=== PATIENT | male | born 1995 | race Caucasian/White ===

== ENCOUNTER 2018-01-14 21:37 | Emergency (ER) | payer BC ==
--- NOTE | 2018-01-14 22:12 | Emergency Department Record ---
History of Present Illness - General Chief Complaint: Ankle/Foot Injury Stated Complaint: LEFT ANKLE INJURY Time Seen by Provider: 01/14/18 22:08 Source: Patient Mode of Arrival: Ambulatory Limitations: No limitations - History of Present Illness Initial Comments: 22 yo male presents with left lateral ankle pain. He was playing softball, stepped in soggy mud, stepped and felt a lateral left ankle pop sensation. No achilles pain. No foot pain. MD Complaint: Ankle injury -: Hour(s) Injury: Ankle: Left Type of Injury: Eversion Place: Other Severity: Moderate Improves With: Immobilization Worsens With: Movement, Palpation Context: Other Associated Symptoms: Snap/pop sensation - Related Data Home Medications Medication Instructions Recorded Confirmed Last Taken No Home Med [NO HOME MEDS] 01/14/18 01/14/18 Unknown Allergies Allergy/AdvReac Type Severity Reaction Status Date / Time pseudoephedrine Allergy HIVES Verified 01/14/18 22:07 [From Sudafed] sulfamethoxazole Allergy PT UNSURE Verified 06/19/14 23:15 [From Bactrim] OF REACTION trimethoprim [From Bactrim] Allergy PT UNSURE Verified 06/19/14 23:15 OF REACTION Review of Systems Constitutional: Denies: Chills, Fever, Weakness Eyes: Denies: Eye discharge ENT: Denies: Congestion, Throat pain Respiratory: Denies: Cough Cardiovascular: Denies: Syncope Endocrine: Denies: Fatigue Gastrointestinal: Denies: Abdominal pain, Diarrhea, Nausea, Vomiting Genitourinary: Denies: Dysuria, Frequency Musculoskeletal: Reports: As per HPI, Arthralgia Skin: Denies: Bruising, Change in color, Rash Neurological: Denies: Headache, Numbness, Weakness Psychiatric: Denies: Anxiety Hematological/Lymphatic: Denies: Easy bleeding, Easy bruising Past Medical History - SOCIAL HISTORY Smoking Status: Never smoker - RESPIRATORY Hx Respiratory Disorders: No - CARDIOVASCULAR Hx Cardio Disorders: No - NEURO Hx Neuro Disorders: No - GI Hx GI Disorders: No - Hx Genitourinary Disorders: No - ENDOCRINE Hx Endocrine Disorders: No - MUSCULOSKELETAL Hx Musculoskeletal Disorders: No - PSYCH Hx Psych Problems: No - HEMATOLOGY/ONCOLOGY Hx Hematology/Oncology Disorders: No Physical Exam - General General Appearance: Alert, Oriented x3, Cooperative, No acute distress Limitations: No limitations - Head Head exam: Atraumatic, Normal inspection - Eye Eye exam: Normal appearance. negative: Conjunctival injection, Scleral icterus - ENT ENT exam: Normal exam Ear exam: Normal external inspection Nasal Exam: Normal inspection Mouth exam: Normal external inspection - Neck Neck exam: Normal inspection - Cardiovascular Peripheral Pulses: 2+: Dorsalis Pedis (L) - Rectal Rectal exam: Deferred - exam: Deferred - Extremities Extremities exam: Joint swelling, Tenderness. negative: Normal inspection Image of Feet: 1 - lateral ankle tenderness and swelling, intact skin, achilles is intact, the 5th MT is non tender, and the remainder of the foot is non tender - Neurological Neurological exam: Alert, Oriented X3 - Psychiatric Psychiatric exam: Normal affect, Normal mood - Skin Skin exam: Dry, Intact, Normal color, Warm Course - Reevaluation(s) Reevaluation #1: 01/14/18 22:52 The XR was reviewed The distal tip of the medial and lateral malleoli both have calcifications These could represent both old and new injuries. He states he has injured the ankle in the past several times He has a [employer] at home with crutches. He will apply both and be non weight bearing until follow up Disposition Disposition: Discharge Clinical Impression: High ankle sprain of left lower extremity Qualifiers: Encounter type: initial encounter Qualified Code(s): S93.432A - Sprain of tibiofibular ligament of left ankle, initial encounter Disposition: Home, Self-Care Condition: (1) Good Instructions: Ankle Sprain (ED) Additional Instructions: Use your [employer] boot and crutches until pain free Call you doctor for a recheck You have been referred to Dr Sahu for orthopedic referral Forms: Patient Portal Access Time of Disposition: 22:55 Quality - Quality Measures Quality Measures: N/A - Blood Pressure Screening Does Patient Have Any of the Following: No Blood Pressure Classification: Hypertensive Reading Systolic Measurement: 144 Diastolic Measurement: 96 Screening for High Blood Pressure: < Pre-Hypertensive BP, F/U Documented > [ [id number]] Pre-Hypertensive Follow-up Interventions: Referral to alternative/primary care provider.
--- NOTE | 2018-01-17 06:39 | RADIOLOGY REPORT ---
DATE: 01/14/2018. EXAM: LEFT ANKLE. HISTORY: Injury. TECHNIQUE: Three views of the left ankle were performed. FINDINGS: There is degenerative change of the medial and lateral aspects of the ankle joint. There is soft tissue swelling. No evidence of acute fracture or dislocation. Soft tissue swelling most pronounced over the lateral aspect. Degenerative change of the medial and lateral aspects. Small radiopaque loose bodies are present. IMPRESSION: [] JOB NUMBER: [] [id number]
== END 2018-01-14 23:19 | disposition home or self-care (01) ==
LOC: ER 21:37
DX: S93.432A Sprain of tibiofibular ligament of left ankle, initial encounter (principal); X50.0XXA Overexertion from strenuous movement or load, initial encounter; Y93.64 Activity, baseball
CPT/HCPCS: 99283